=== PATIENT | male | born 1950 | race Caucasian/White ===

== ENCOUNTER → 2016-08-29 | Outpatient (CLI) | payer OTHER, MEDICARE ==
--- NOTE | 2016-08-29 11:35 | DX ---
Chest, Two Views at 0909 hours History: Cough, R05. Comparison: None. Findings: Cardiac silhouette is within normal range. Bilateral peribronchial thickening. Tortuous tho racic aorta No pneumonia, congestive heart failure, pleural effusion, or pneumothorax. Impression: 1. Bronchitis. 2. No definite focal pneumonia.
== END ==
LOC: FIMAGING 09:07
PROVIDERS: ATTEND Internal Medicine
DX: J40 Bronchitis, not specified as acute or chronic (principal)
CPT/HCPCS: 36415-PO; G0463-PO

== ENCOUNTER → 2016-09-10 | Outpatient (CLI) | payer OTHER, MEDICARE ==
[~2016-09-10] MED LIST: GADOBUTROL 10 ML VIAL IVP ONE
--- NOTE | 2016-09-11 09:22 | MR ---
MRI Brain With Attention to the IACs (Without and With Contrast) at 1903 hours History: Bilateral pulsatile tinnitus.. Technique: T1-weighted images were obtained sagittally and axially. Small fqoyh-gx-eyev high resolu tion axial and coronal T1 without and with contrast centered on the IACs, large cnehi-pw-btgz axial T1 postcontrast, and T2 fast spin-echo sequence obtained through the brain. 6.5 mL of Gadavist IV con trast were administered without complications. Findings: Brain volume is normal. No intracranial hemorrhage, mass, extraaxial fluid collection or a bnormal focus of enhancement. Specifically, the cerebellopontine angles and internal auditory canals are normal. Nerves VII and VIII have no abnormal enhancement. The ventricles and basilar cisterns are normal caliber midline. There are scattered foci of increased signal best seen on FLAIR T2-weighted sequence involving the periventricular and subcortical white matter frontal and parietal lobes bilate rally. These do not enhance with contrast administration. There is an enhancing vessel extending from the peripheral cortex of left frontal lobe to the frontal horn of the left lateral ventricle compati ble with a venous angioma without associated hemorrhage. The pituitary gland, orbits, cervicooccipita l junction, and paranasal sinuses are unremarkable. The carotid and basivertebral arteries have quentin l black signal voids. Impression: 1. Normal MRI of the IACs without and with contrast. 2. Incidental venous angioma left frontal lobe. 3. A few nonspecific hyperintense T2/FLAIR signal abnormalities in the white matter of bilateral fron evelyn and parietal lobes. Differential diagnosis includes microvascular ischemic disease, post-infectio us/post-inflammatory sequela, atypical demyelinating disease, or migraine-related sequela.
== END ==
LOC: FIMAGING 18:40
PROVIDERS: ATTEND Otolaryngology
DX: H93.A3 Pulsatile tinnitus, bilateral (principal); D18.02 Hemangioma of intracranial structures
CPT/HCPCS: 70553; A9585

== ENCOUNTER → 2017-12-04 | Outpatient (CLI) | payer OTHER, MEDICARE | LOC: BHFA 13:15 | PROVIDERS: ATTEND Internal Medicine Cardiovascular Disease | DX: R07.9 Chest pain, unspecified (principal) ==

== ENCOUNTER 2018-05-27 04:52 | Emergency (ER) | payer OTHER, MEDICARE ==
[2018-05-27] MEDS ORDERED: NS 1,000 ML IV ONE (05:01)
--- NOTE | 2018-05-27 05:10 | EDPHY ---
H & P Stated Complaint: L side abd pain, concerned for hernia, "lifting heavy things" Time Seen by Provider: 05/27/18 05:07 HPI/ROS: HPI CHIEF COMPLAINT: Abdominal pain left-sided HISTORY OF PRESENT ILLNESS: Very pleasant 68-year-old male, presents emergency room left-sided abdominal pain. States been present for 3 days. Patient states the day before that he was lifting a very heavy car battery out of the car was bent over lifting it out of the car and then turn left placed down. He does not remember an injury. However he states for the past 3 days he has had some left lateral abdominal pain. He states not worse when he goes to sit up or lay back. It does bother him a little bit when he makes left truncal axial movements. He denies chest pain or shortness of breath the pain is located left lateral low abdomen. He is unsure if there is something further inside is causing him pain or fits his abdominal wall. Unsure if to hernia. Patient denies any urinary symptoms, testicular pain, groin pain, chest pain or shortness of breath. No pleuritic pain. He noticed it worse when he goes to sleep and cannot get to sleep comfortably. It is now 5 o'clock in the morning he presents emergency room for left lateral lower abdominal pain. No fever. Patient denies taking any pain medicine for this. Past Medical History: Denies significant medical Past Surgical History: Denies significant surgical history Social History: Denies drugs alcohol tobacco. Family History: Noncontributory. ROS REVIEW OF SYSTEMS: 10 Systems were reviewed and negative with the exception of the elements mentioned in the history of present illness. Exam Constitutional triage nursing summary reviewed, vital signs reviewed, awake/ alert. Eyes normal conjunctivae and sclera, EOMI, PERRLA. HENT normal inspection, atraumatic, moist mucus membranes, no epistaxis, neck supple/ no meningismus, no raccoon eyes. Respiratory clear to auscultation bilaterally, normal breath sounds, no respiratory distress, no wheezing. Cardiovascular rate normal, regular rhythm, no murmur, no edema, distal pulses normal. Gastrointestinal patient is focally tender in the left lateral low abdominal wall. With deep palpation of the left lateral wall causes him discomfort. No palpable hernia. No left upper quadrant pain, no groin pain, no inguinal pain. No peritoneal signs. Normal bowel sounds., no rebound, no guarding, normal bowel sounds, no distension, no pulsatile mass. Genitourinary no CVA tenderness. Musculoskeletal no midline vertebral tenderness, full range of motion, no calf swelling, no tenderness of extremities, no meningismus, good pulses, neurovascularly intact. Skin pink, warm, & dry, no rash, skin atraumatic. Neurologic awake, alert and oriented x 3, AAOx3, moves all 4 extremities equally, motor intact, sensory intact, CN II-XII intact, normal cerebellar, normal vision, normal speech. Psychiatric normal mood/affect. Heme/Lymph/Immune no lymphadenopathy. Differential diagnosis includes but is not limited to and in no particular order : Musculoskeletal abdominal wall pain, Bowel obstruction, appendicitis, gallbladder disease, diverticulitis, colitis, enteritis, perforated viscus, gastritis, GERD, esophagitis, urinary tract infection, pyelonephritis, kidney stones Medical Decision Making: Plan for this patient IV establishment with blood draw , IV fluid bolus, CT scan abdomen pelvis with IV contrast. Re-evaluation: 0626: CT abdomen pelvis with IV contrast shows no acute inflammatory process to explain the left lateral lower abdominal pain. Called to me by Dr. Rodgers. Clinically on exam I believe this to be musculoskeletal. I recommend rest. Ice , anti-inflammatory pain medicine. Discussed return precautions with him. He understands return emergency room if he has worsening abdominal pain, fever, vomiting. I believe this to be musculoskeletal from lifting a car battery. Abdominal wall strain. Source: Patient - Personal History Current Tetanus Diphtheria and Acellular Pertussis (TDAP): Yes - Medical/Surgical History Hx Asthma: No Hx Chronic Respiratory Disease: No Hx Diabetes: No Hx Cardiac Disease: No Hx Renal Disease: No Hx Cirrhosis: No Hx Alcoholism: No Hx HIV/AIDS: No Hx Splenectomy or Spleen Trauma: No Other PMH: Denies - Social History Smoking Status: Never smoked Constitutional: Initial Vital Signs Temperature (C) 36.7 C 05/27/18 04:55 Heart Rate 75 05/27/18 04:55 Respiratory Rate 18 05/27/18 04:55 Blood Pressure 148/93 H 05/27/18 04:55 O2 Sat (%) 95 05/27/18 04:55 O2 Delivery Mode Room Air Allergies/Adverse Reactions: Penicillins Allergy (Verified 05/27/18 04:58) Medical Decision Making - Data Points Laboratory Results: Laboratory Results 05/27/18 05:10 05/27/18 05:10 05/27/18 05/27/18 05/27/18 05:10 05:10 05:10 WBC 7.54 10^3/uL 10^3/uL (3.80-9.50) RBC 5.90 10^6/uL 10^6/uL (4.40-6.38) Hgb 17.4 g/dL g/dL (13.7-17.5) Hct 51.2 % H % (40.0-51.0) MCV 86.8 fL fL (81.5-99.8) MCH 29.5 pg pg (27.9-34.1) MCHC 34.0 g/dL g/dL (32.4-36.7) RDW 14.2 % % (11.5-15.2) Plt Count 209 10^3/uL 10^3/uL (150-400) MPV 10.4 fL fL (8.7-11.7) Neut % (Auto) 69.0 % % (39.3-74.2) Lymph % (Auto) 15.8 % % (15.0-45.0) [place] % (Auto) 11.7 % % (4.5-13.0) Eos % (Auto) 2.3 % % (0.6-7.6) Baso % (Auto) 0.9 % % (0.3-1.7) Nucleat RBC Rel Count 0.0 % % (0.0-0.2) Absolute Neuts (auto) 5.21 10^3/uL 10^3/uL (1.70-6.50) Absolute Lymphs (auto) 1.19 10^3/uL 10^3/uL (1.00-3.00) Absolute Monos (auto) 0.88 10^3/uL H 10^3/uL (0.30-0.80) Absolute Eos (auto) 0.17 10^3/uL 10^3/uL (0.03-0.40) Absolute Basos (auto) 0.07 10^3/uL 10^3/uL (0.02-0.10) Absolute Nucleated RBC 0.00 10^3/uL 10^3/uL (0-0.01) Immature Gran % 0.3 % % (0.0-1.1) Immature Gran # 0.02 10^3/uL 10^3/uL (0.00-0.10) VBG Lactic Acid 1.2 mmol/L mmol/L (0.7-2.1) Sodium 139 mEq/L mEq/L (135-145) Potassium 3.5 mEq/L mEq/L (3.3-5.0) Chloride 102 mEq/L mEq/L (97-110) Carbon Dioxide 26 mEq/l mEq/l (22-31) Anion Gap 11 mEq/L mEq/L (6-14) BUN 23 mg/dL mg/dL (7-23) Creatinine 1.2 mg/dL mg/dL (0.7-1.3) Estimated GFR 60 Glucose 98 mg/dL mg/dL (70-100) Calcium 9.5 mg/dL mg/dL (8.5-10.4) Total Bilirubin 0.9 mg/dL mg/dL (0.1-1.4) Conjugated Bilirubin 0.2 mg/dL mg/dL (0.0-0.5) Unconjugated Bilirubin 0.7 mg/dL mg/dL (0.0-1.1) AST 27 IU/L IU/L (17-59) ALT 34 IU/L IU/L (21-72) Alkaline Phosphatase 82 IU/L IU/L (38-126) Total Protein 6.7 g/dL g/dL (6.3-8.2) Albumin 3.9 g/dL g/dL (3.5-5.0) Lipase 85 IU/L IU/L (23-300) Medications Given: Discontinued Medications Sodium Chloride (Ns) 1,000 mls @ 0 mls/hr IV EDNOW ONE; Wide Open PRN Reason: Protocol Stop: 05/27/18 05:02 Last Admin: 05/27/18 05:15 Dose: 1,000 mls Departure - Departure Disposition: Home, Routine, Self-Care Clinical Impression: Abdominal wall pain Condition: Good Instructions: Acute Abdominal Pain (ED), Musculoskeletal Pain (ED) Additional Instructions: 1. Recommend ice pack. 2. Recommend rest. 3. Recommend anti-inflammatory pain medicine like Tylenol Motrin you can alternate these every 6-8 hours. Referrals: Vikas Kothari MD [Primary Care Provider] - As per Instructions
[2018-05-27 05:23] LABS: PLATELET COUNT 209 10^3/uL (150-400)
[2018-05-27] MEDS ORDERED: IOPAMIDOL (ISOVUE-300) 100 ML BTL ONE (05:29)
[2018-05-27 06:40] VITALS: BP 148/86
== END 2018-05-27 06:40 | disposition home or self-care (01) ==
DX: R10.9 Unspecified abdominal pain (principal); X50.0XXA Overexertion from strenuous movement or load, initial encounter; Y92.9 Unspecified place or not applicable
CPT/HCPCS: 74177; 99285; Q9967

== ENCOUNTER 2018-07-21 05:07 | Emergency (ER) | payer OTHER, MEDICARE ==
[2018-07-21 05:12] VITALS: BP 146/92
--- NOTE | 2018-07-21 05:20 | EDPHY ---
H & P Stated Complaint: Difficulty with urination, pain Time Seen by Provider: 07/21/18 05:14 HPI/ROS: Chief Complaint: Difficulty urinating, pain with urination HPI: 68-year-old male with a history of kidney stones and prostate cancer treated with CyberKnife is presenting with difficulty with urination, difficulty initiating a urine stream, pain and burning with urination and some mild low pelvic discomfort. He has not have a history of similar episodes in the past. No back pain. No fevers or chills. No nausea or vomiting. Symptoms got significantly worse last night but patient states that he has noticed some twinges with urination for the last several weeks. No abdominal pain. No constipation or diarrhea. ROS: 10 systems were reviewed and were negative except those elements noted in the HPI. PMH: Prostate cancer status post CyberKnife therapy, renal calculi, hypertension Social History: No smoking, no alcohol, no recreational drug use Family History: non-contributory Physical Exam: Gen: Awake, Alert, No Distress HEENT: Nose: no rhinorrhea Eyes: PERRLA, EOMI Mouth: Moist mucosa Neck: Supple, no JVD Chest: nontender, lungs clear to auscultation Heart: S1, S2 normal, no murmur Abd: Soft, non-tender, no guarding Back: no CVA tenderness, no midline tenderness Ext: no edema, non-tender Skin: no rash Neuro: CN II-XII intact, Sensation grossly intact, Strength 5/5 in bilateral upper and lower extremities - Personal History Current Tetanus/Diphtheria Vaccine: Yes Current Tetanus Diphtheria and Acellular Pertussis (TDAP): Yes - Medical/Surgical History Hx Asthma: No Hx Chronic Respiratory Disease: No Hx Diabetes: No Hx Cardiac Disease: No Hx Renal Disease: No Hx Cirrhosis: No Hx Alcoholism: No Hx HIV/AIDS: No Hx Splenectomy or Spleen Trauma: No Other PMH: prostate CA, kidney stones, HTN - Social History Smoking Status: Never smoked Constitutional: Initial Vital Signs Temperature (C) 36.7 C 07/21/18 05:10 Heart Rate 69 07/21/18 05:10 Respiratory Rate 18 07/21/18 05:10 Blood Pressure 146/92 H 07/21/18 05:10 O2 Sat (%) 94 07/21/18 05:10 O2 Delivery Mode Room Air Allergies/Adverse Reactions: Penicillins Allergy (Verified 07/21/18 05:08) Medical Decision Making ED Course/Re-evaluation: Patient with UTI symptoms. He has a postvoid residual of about 90 mL on bladder scan. Urinalysis has been sent. Urinalysis is negative. He does not have urinary retention. No other symptoms suggestive of acute prostatitis. Plan will be to discharge with referral to Urology as an outpatient. - Data Points Laboratory Results: 07/21/18 05:00 Urine Color PALE YELLOW Urine Appearance CLEAR Urine pH 5.0 (5.0-7.5) Ur Specific [place] 1.008 (1.002-1.030) Urine Protein NEGATIVE (NEGATIVE) Urine Ketones NEGATIVE (NEGATIVE) Urine Blood NEGATIVE (NEGATIVE) Urine Nitrate NEGATIVE (NEGATIVE) Urine Bilirubin NEGATIVE (NEGATIVE) Urine Urobilinogen NEGATIVE EU EU (0.2-1.0) Ur Leukocyte Esterase NEGATIVE (NEGATIVE) Urine Glucose NEGATIVE (NEGATIVE) Departure - Departure Disposition: Home, Routine, Self-Care Clinical Impression: Dysuria Condition: Good Instructions: Dysuria (ED) Additional Instructions: Follow up with your urologist in 2-3 days for further evaluation. Take ibuprofen, 600 mg every 8 hr. You may alternate with acetaminophen, 1000 mg every 8 hr. Return to the emergency depart for increasing pain, fevers, chills, nausea, vomiting, inability to urinate, or any other concerns. Referrals: Vikas Kothari MD [Primary Care Provider] - As per Instructions
== END 2018-07-21 06:54 | disposition home or self-care (01) ==
DX: R30.0 Dysuria (principal); Z87.442 Personal history of urinary calculi; Z85.46 Personal history of malignant neoplasm of prostate

== ENCOUNTER → 2018-09-10 | Outpatient (CLI) | payer OTHER, MEDICARE | LOC: BHFA 09:00 | PROVIDERS: ATTEND Internal Medicine Cardiovascular Disease | DX: R00.2 Palpitations (principal) ==